=== PATIENT | male | born 1945 | race Caucasian/White ===

== ENCOUNTER 2017-01-20 05:59 | Day surgery (SDC) | payer MEDICARE, OTHER ==
[2017-01-20] MEDS ORDERED: DIPRIVAN 200 MG/20 ML IV ONE (06:00)
[2017-01-20] MEDS ORDERED: Lactated Ringers 1,000 ML IV SCH (06:00)
[2017-01-20] MEDS ORDERED: Versed 2 MG/2 ML Injection IV ONE (06:00)
[2017-01-20 08:02] VITALS: O2SAT 99
[2017-01-20 08:29] VITALS: BP 119/76; PULSE 63
--- NOTE | 2017-01-20 09:18 | XRAY ---
Indication: Weight loss. Comparison: None PA/lateral chest hyperinflated and clear. Heart and mediastinal structures within normal limits. Bony thorax intact with mild/moderate degenerative changes. Impression: Nonacute hyperinflated chest.
--- NOTE | 2017-01-20 10:16 | OP ---
SURGERY DATE/TIME: 01/20/2017 0658 PREOPERATIVE DIAGNOSIS: 40 pound weight loss unexplained. POSTOPERATIVE DIAGNOSES: 1) Mild gastritis. 2) Mild pyloric stricture. PROCEDURE: Esophagogastroduodenoscopy. SURGEON: Dr. Heart. ANESTHESIA: Medications were given by the anesthesia department. BRIEF HISTORY: The patient is a 71 year old white male patient presents now with complaints of weight loss. He previously had chest x-ray and colonoscopy performed which have been normal. The patient was felt the need to have endoscopic evaluation. He was appraised of the risks of the procedure including the risk of perforation, phlebitis, untoward reaction to medication, bleeding and missed lesions. The patient verbalized his understanding and desired to have the procedure performed. DESCRIPTION OF PROCEDURE: The patient was given the medications by the anesthesia department. He had continuous pulse oximetry, ECG monitoring, intermittent blood pressure monitoring and tidal CO2 monitoring during the examination. He was placed in the left lateral decubitus position. A bite block was placed. The flexible Olympus gastroscope was used to intubate the oropharynx. A view of the larynx was obtained and was normal. The scope was easily introduced in the esophagus which appeared to be normal throughout its length. The stomach was entered where normal gastric rugal folds were seen and these distended nicely with insufflation of air. The scope was passed along the greater curvature of the stomach to the antrum. The pylorus was encountered and was found to be somewhat narrow. We were able to intubate the duodenum but there was a distant popping sensation as we passed from the stomach to the duodenum. The rest of the duodenum appeared to be essentially normal. The scope was withdrawn towards the stomach. Again, retroflex view was obtained of the lesser curvature, fundus and cardia regions of the stomach and re-inspection of the pyloric area revealed a mild bleeding but we were more easily able to pass to the duodenum on the second pass. The scope was removed from the patient who tolerated the procedure well and was sent back to the hospital [facility] in good condition.
== END 2017-01-20 08:40 | disposition home or self-care (01) ==
LOC: SDC 05:59
PROVIDERS: ATTEND Family Medicine
PROC: 0DJ08ZZ Inspection of Upper Intestinal Tract, Via Natural or Artificial Opening Endoscopic (ICD-10-PCS; principal; 2017-01-20)
DX: K29.70 Gastritis, unspecified, without bleeding (principal); K31.1 Adult hypertrophic pyloric stenosis
CPT/HCPCS: 00740; 71020; 99100; J2250; J2704

== ENCOUNTER 2017-12-07 08:56 | Day surgery (SDC) | payer MEDICARE, OTHER ==
--- NOTE | 2017-12-04 11:29 | HP ---
DATE OF SURGERY: 12/07/2017 ADMISSION DIAGNOSIS: Pyloric obstruction. ANTICIPATED PROCEDURE: EGD with pyloric dilatation. HISTORY OF PRESENT ILLNESS: The patient has a pyloric obstruction. He is symptomatic. He presents for dilatation. PAST MEDICAL HISTORY: ALLERGIES: NKDA. MEDICATIONS: Pantoprazole. PAST SURGICAL HISTORY: Multiple. SOCIAL HISTORY: Negative. FAMILY HISTORY: Negative. REVIEW OF SYSTEMS: Negative. PHYSICAL EXAMINATION: VITAL SIGNS: Normal. CHEST: Clear. COR: Regular. IMPRESSION: Pyloric obstruction. PLAN: EGD with pyloric dilatation.
[~2017-12-07 08:56] MED LIST: Lactated Ringers 1,000 ML IV ONE; Lactated Ringers 1,000 ML IV SCH
[2017-12-07] MEDS ORDERED: Ketamine HCl 50 MG/ML IV ONE (08:57)
[2017-12-07] MEDS ORDERED: DIPRIVAN 200 MG/20 ML IV ONE (08:57)
--- NOTE | 2017-12-07 13:49 | OP ---
SURGERY DATE/TIME: 12/07/2017 1130 PREOPERATIVE DIAGNOSIS: Pyloric-gastric outlet obstruction. POSTOPERATIVE DIAGNOSIS: Pyloric-gastric outlet obstruction, resolved. PROCEDURE: EGD with balloon dilatation stage 2 at size 38. SURGEON: Tobin Emery M.D. ANESTHESIA: MAC. COMPLICATIONS: None. CONDITION: Stable. INDICATION: A patient requiring evaluation. DESCRIPTION OF PROCEDURE: Taken to endoscopy. MAC sedation provided. The scope was introduced. The esophagus normal down to gastroesophageal junction. Gastroesophageal junction satisfactory. The fundus, body and antrum satisfactory. The pylorus was tight about size 24. Balloon placed. It is insufflated for 2 minutes at second stage at 38. The scope easily passed. Duodenal bulb satisfactory. Second portion satisfactory. There had been 2 ounces of fluid that had been suctioned. The pylorus was excellent at this time. Scope withdrawn. The patient tolerated the procedure satisfactorily. Findings discussed with the family in the waiting room.
[2017-12-07 14:56] VITALS: PULSE 60
[2017-12-07 15:01] VITALS: BP 123/69; O2SAT 98
== END 2017-12-07 12:50 | disposition home or self-care (01) ==
LOC: SDC 08:56
PROVIDERS: ATTEND Surgery
DX: K31.1 Adult hypertrophic pyloric stenosis (principal); R13.10 Dysphagia, unspecified
CPT/HCPCS: 99100; C1726; J2704

== ENCOUNTER 2018-09-27 08:52 | Day surgery (SDC) | payer MEDICARE, OTHER ==
--- NOTE | 2018-09-25 14:21 | HP ---
DATE OF SURGERY: 09/27/2018 ANTICIPATED PROCEDURE: Cholecystectomy. HISTORY OF PRESENT ILLNESS: Patient with upper abdominal pain. Ultrasound positive. Seen and examined. Procedure discussed in detail and wished to proceed. PAST MEDICAL HISTORY: ALLERGIES: NONE. MEDICATIONS: Benazepril, pantoprazole. PAST SURGICAL HISTORY: Neck surgery. Shoulder surgery. Back surgery. SOCIAL HISTORY: Negative. FAMILY HISTORY: Negative. REVIEW OF SYSTEMS: Reflux. Hypertension. PHYSICAL EXAMINATION: VITAL SIGNS: Normal. CHEST: Clear. COR: Regular. ABDOMEN: Satisfactory. IMPRESSION: Symptomatic cholelithiasis. PLAN: Laparoscopic cholecystectomy.
[~2018-09-27 08:52] MED LIST changes: -Lactated Ringers 1,000 ML IV SCH; +Sensorcaine 0.25% 10 ML ONE
[2018-09-27] MEDS ORDERED: Zofran 4 MG/2 ML VIAL IV ONE (08:53)
[2018-09-27] MEDS ORDERED: BRIDION 200MG/2ML IV ONE (08:53)
[2018-09-27] MEDS ORDERED: SUBLIMAZE 100 MCG/2 ML IV ONE ×2 (08:53)
[2018-09-27] MEDS ORDERED: Decadron 4 MG PO ONE (08:53)
[2018-09-27] MEDS ORDERED: Quelicin Fliptop 200 MG/10 ML IJ ONE (08:53)
[2018-09-27] MEDS ORDERED: BREVIBLOC 100 MG/10 ML IV ONE (08:53)
[2018-09-27] MEDS ORDERED: DIPRIVAN 200 MG/20 ML IV ONE (08:53)
[2018-09-27] MEDS ORDERED: Zemuron 100 MG/10 ML IJ ONE (08:53)
[2018-09-27] MEDS ORDERED: MEFOXIN 2 GM PREMIX** 2 GM/50 ML ML IV ONE (09:19)
[2018-09-27] MEDS ORDERED: Lactated Ringers 1,000 ML IV SCH (09:30)
[2018-09-27] MEDS ORDERED: MEFOXIN 2 GM PREMIX** 2 GM/50 ML ML IV SCH (10:00)
[2018-09-27] MEDS ORDERED: DILAUDID 2 MG INJECTION ONE (13:41)
[2018-09-27] MEDS ORDERED: APRESOLINE 20 MG/ML INJ ONE (13:41)
--- NOTE | 2018-09-27 13:56 | OP ---
SURGERY DATE/TIME: 09/27/2018 1240 PREOPERATIVE DIAGNOSIS: Symptomatic cholelithiasis and gallbladder dyskinesia. POSTOPERATIVE DIAGNOSIS: Symptomatic cholelithiasis and gallbladder dyskinesia. PROCEDURE: Laparoscopic cholecystectomy. SURGEON: Dr. Emery. ANESTHESIA: General - Naga Canales CRNA. ESTIMATED BLOOD LOSS: 50. DRAINS: None. COMPLICATIONS: None. CONDITION: Stable. INDICATIONS: A patient with symptomatic cholelithiasis. DESCRIPTION OF PROCEDURE AND FINDINGS: Taken to surgery. General anesthetic, routine prep and drape. Opening pressure -2, insufflating pressure 14. Four - 5's initially. Very thick walled. Marked amount of omentum stuck against the gallbladder which is taken down with hook cautery. Infundibulum dissected. Impacted stone present. Cystic duct defined. Cystic artery defined. Both structures triply clipped and transected. Clips noted across and well approximated. Gallbladder rolled out of gallbladder fossa. A very inflamed, chronically inflamed gallbladder was present. It was necessary to suction the gallbladder. It was necessary to picker packer a few stones. Gallbladder placed in a condom bag and removed. The field was dry and clean. Gallbladder bed was slightly raw in nature. There was no oozing however. No drains were placed. Hole closure device used on the epigastric port that had been changed to a 10 port for gallbladder bag extraction. Skin closed with staplers. Sterile dressing applied. The patient tolerated the procedure satisfactorily.
[2018-09-27 15:20] VITALS: BP 151/77; PULSE 81; O2SAT 93
== END 2018-09-27 15:35 | disposition home or self-care (01) ==
LOC: SDC 08:52
PROVIDERS: ATTEND Surgery
DX: K80.20 Calculus of gallbladder without cholecystitis without obstruction (principal); K82.8 Other specified diseases of gallbladder; I10 Essential (primary) hypertension; K21.9 Gastro-esophageal reflux disease without esophagitis
CPT/HCPCS: 99100; J0330; J0360; J0694; J1170; J2405; J2704; J3010; A9270-GY

== ENCOUNTER 2020-08-02 03:50 | Inpatient (IN) | payer MEDICARE, OTHER ==
--- NOTE | 2020-08-02 04:20 | ERPHSYRPT ---
- History of Present Illness Time Seen by Provider: 08/02/20 04:15 Source: patient, EMS Exam Limitations: no limitations Physician History: pt noted weakness at 1030-11pm and later fell out of bed at 2 am ; no blood thinners. no prior cardiac or cva events. sppech is normal ; had initially slight confusion with questions but cleared cognition. has right LE weakness only stroke/neuro consult has been placed. Time of Onset/Last Time Seen Normal: 1030-1100pm Timing/Duration: today Severity: severe Character of Deficits: new weakness, altered sensation, RLE Deficits: cannot stand, cannot walk, falling, unable to stand Baseline/Normal Cognition: alert oriented x 3 Current Cognition: alert oriented x 3 (had slight confusion earlier and improved to normal cognition) Baseline Gait: walks w/o assistance Associated Symptoms: muscle spasms Allergies/Adverse Reactions: No Known Drug Allergies Allergy (Verified 08/02/20 03:51) Home Medications: Pantoprazole Sodium [Protonix] 40 mg PO DAILY 01/20/17 [History] Buprenorphine HCl/Naloxone HCl [Suboxone 2 mg-0.5 mg Sl Film] 1 each SL DAILY 09/27/18 [History] - Review of Systems Constitutional: No Fever, No Chills Eyes: No Symptoms Ears, Nose, & Throat: No Symptoms Respiratory: No Cough, No Dyspnea Cardiac: Chest Pain, No Edema, No Syncope Abdominal/Gastrointestinal: No Abdominal Pain, No Nausea, No Vomiting, No Diarrhea Genitourinary Symptoms: No Dysuria Musculoskeletal: No Back Pain, No Neck Pain Skin: No Rash Neurological: No Dizziness, No Focal Weakness, No Sensory Changes Psychological: No Symptoms Endocrine: No Symptoms All Other Systems: Reviewed and Negative - Past Medical History Pertinent Past Medical History: Yes Neurological History: No Pertinent History ENT History: Cataracts Cardiac History: Hypertension Respiratory History: No Pertinent History Endocrine Medical History: No Pertinent History Musculoskeletal History: Arthritis, Fractures GI Medical History: GERD History: No Pertinent History Psycho-Social History: No Pertinent History Male Reproductive Disorders: No Pertinent History - Past Surgical History Past Surgical History: Yes Neuro Surgical History: No Pertinent History Cardiac: No Pertinent History Respiratory: No Pertinent History Gastrointestinal: No Pertinent History Genitourinary: No Pertinent History Musculoskeletal: Orthopedic Surgery Male Surgical History: No Pertinent History Other Surgical History: kem cataract removal with lens implant, left shoulder rotator cuff twice ,back L4 and L5 "nerves clipped". cervical fusion - Social History Smoking Status: Former smoker Exposure to second hand smoke: No Drug Use: none - Nursing Vital Signs Nursing Vital Signs: Initial Vital Signs Pulse Rate 67 08/02/20 03:51 Respiratory Rate 20 08/02/20 03:51 Blood Pressure 155/72 08/02/20 03:51 O2 Sat by Pulse Oximetry 97 08/02/20 03:51 Pain Scale Pain Intensity 0 - [place] Coma Scale Best Eye Response ([place]): (4) open spontaneously Best Verbal Response ([place]): (5) oriented Best Motor Response ([place]): (6) obeys commands [place] Total: 15 - Physical Exam General Appearance: no apparent distress, alert Eye Exam: bilateral eye: PERRL, EOMI Ears, Nose, Throat Exam: normal ENT inspection, moist mucous membranes Neck Exam: normal inspection, non-tender, supple Respiratory: normal breath sounds, lungs clear, airway intact, No respiratory distress Cardiovascular: regular rate/rhythm, No edema Gastrointestinal: soft, No tenderness, No distention Rectal Exam: deferred Back Exam: normal inspection Extremity Exam: normal inspection, No pedal edema Peripheral Pulses: carotid (R): 2+, carotid (L): 2+, femoral (R): 2+, femoral (L): 2+, dorsalis-pedis (R): 2+, dorsalis-pedis (L): 2+ Mental Status: alert, oriented x 3, 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 Exam: normal speech, PERRL, tongue midline, No facial droop Coordination/Gait: normal finger to nose, normal cerebellar function, No normal gait Motor/Sensory: no pronator drift, sensory deficit, weak motor strength RLE DTR: bicep (R): 2+, bicep (L): 2+, tricep (R): 2+, tricep (L): 2+, knee (R): 3+, knee (L): 2+, ankle (R): 3+, ankle (L): 2+ Skin Exam: normal color, warm, dry, No rash SpO2 Interpretation: normal O2 Delivery: Room Air - Course Nursing assessment & vital signs reviewed: Yes EKG Interpreted by Me: Sinus Rhythm, NORMAL AXIS, NORMAL INTERVALS, NORMAL QRS, Non-specific ST Changes - CT Exams Head CT Interpretation: Tele-radiologist Report, No/Intracranial Hemorrhag Ordered Tests: Active Orders 24 hr Category Date Time Status EKG-ER Only STAT Care 08/02/20 04:10 Active IV Insertion STAT Care 08/02/20 04:10 Active NPO (ED) STAT Care 08/02/20 04:10 Active Pulse Oximetry (ED) STAT Care 08/02/20 04:[address] ANGIOGRAPHY NECK [CT] Stat Exams 08/02/20 05:40 Taken CTA HEAD W AND/OR WO CONTRAST [CT] Stat Exams 08/02/20 05:54 Taken HEAD WITHOUT CONTRAST [CT] Stat Exams 08/02/20 04:10 Taken CBC W DIFF Stat Lab 08/02/20 04:30 Completed CMP Stat Lab 08/02/20 04:30 Completed Lactic Acid Stat Lab 08/02/20 04:29 Completed TROPONIN Q3H Lab 08/02/20 04:30 Completed TROPONIN Q3H Lab 08/02/20 07:15 Ordered TROPONIN Q3H Lab 08/02/20 10:15 Ordered TROPONIN Q3H Lab 08/02/20 13:15 Ordered TROPONIN Q3H Lab 08/02/20 16:15 Ordered UA W/RFX UR CULTURE Stat Lab 08/02/20 04:36 Completed Lab/Rad Data: Laboratory Result Diagrams 08/02/20 04:30 08/02/20 04:30 Laboratory Results 08/02/20 08/02/20 08/02/20 Range/Units 04:36 04:30 04:30 WBC (4.0-10.5) K/mm3 RBC (4.1-5.6) M/mm3 Hgb (12.5-18.0) gm/dl Hct (42-50) % MCV (78-100) fl MCH (26-32) pg MCHC (32-36) g/dl RDW (11.5-14.0) % Plt Count (150-450) K/mm3 MPV (7.5-11.0) fl Gran % (36.0-66.0) % Eos # (Auto) (0-0.5) Absolute Lymphs (auto) (1.0-4.6) Absolute Monos (auto) (0.0-1.3) Lymphocytes % (24.0-44.0) % Monocytes % (0.0-12.0) % Eosinophils % (0.00-5.0) % Basophils % (0.0-0.4) % Absolute Granulocytes (1.4-6.9) Basophils # (0-0.4) Sodium 133 L (137-145) mmol/L Potassium 4.5 (3.5-5.1) mmol/L Chloride 101 (98-107) mmol/L Carbon Dioxide 28 (22-30) mmol/L Anion Gap 8.2 (5-15) MEQ/L BUN 15 (9-20) mg/dL Creatinine 0.85 (0.66-1.25) mg/dL Estimated GFR > 60.0 ML/MIN Glucose 106 (74-106) mg/dL Lactic Acid (0.4-2.0) Calcium 9.1 (8.4-10.2) mg/dL Total Bilirubin 0.30 (0.2-1.3) mg/dL AST 20 (17-59) U/L ALT 5 (0-50) U/L Alkaline Phosphatase 92 (38-126) U/L Troponin I < 0.012 (0.000-0.034) ng/mL Serum Total Protein 6.7 (6.3-8.2) g/dL Albumin 3.7 (3.5-5.0) g/dL Urine Color YELLOW (YELLOW) Urine Appearance CLEAR (CLEAR) Urine pH 5.0 (5-6) Ur Specific [place] 1.018 (1.005-1.025) Urine Protein NEGATIVE (Negative) Urine Ketones TRACE (NEGATIVE) Urine Blood NEGATIVE (0-5) [place]/ul Urine Nitrite NEGATIVE (NEGATIVE) Urine Bilirubin NEGATIVE (NEGATIVE) Urine Urobilinogen NEGATIVE (0-1) mg/dL Ur Leukocyte Esterase NEGATIVE (NEGATIVE) Urine WBC (Auto) NONE (0-5) /HPF Urine RBC (Auto) NONE (0-2) /HPF U Hyaline Cast (Auto) 0-2 (0-2) /LPF U Epithel Cells (Auto) NONE (FEW) /HPF Urine Bacteria (Auto) NONE (NEGATIVE) /HPF Urine Mucus (Auto) SLIGHT (NEGATIVE) /HPF Urine Culture Reflexed NO (NO) Urine Glucose NEGATIVE (NEGATIVE) mg/dL 08/02/20 08/02/20 Range/Units 04:30 04:29 WBC 8.0 (4.0-10.5) K/mm3 RBC 4.63 (4.1-5.6) M/mm3 Hgb 13.0 (12.5-18.0) gm/dl Hct 41.9 L (42-50) % MCV 90.5 (78-100) fl MCH 28.1 (26-32) pg MCHC 31.0 L (32-36) g/dl RDW 14.2 H (11.5-14.0) % Plt Count 226 (150-450) K/mm3 MPV 9.6 (7.5-11.0) fl Gran % 63.1 (36.0-66.0) % Eos # (Auto) 0.59 H (0-0.5) Absolute Lymphs (auto) 1.59 (1.0-4.6) Absolute Monos (auto) 0.73 (0.0-1.3) Lymphocytes % 19.9 L (24.0-44.0) % Monocytes % 9.1 (0.0-12.0) % Eosinophils % 7.4 H (0.00-5.0) % Basophils % 0.5 (0.0-0.4) % Absolute Granulocytes 5.05 (1.4-6.9) Basophils # 0.04 (0-0.4) Sodium (137-145) mmol/L Potassium (3.5-5.1) mmol/L Chloride (98-107) mmol/L Carbon Dioxide (22-30) mmol/L Anion Gap (5-15) MEQ/L BUN (9-20) mg/dL Creatinine (0.66-1.25) mg/dL Estimated GFR ML/MIN Glucose (74-106) mg/dL Lactic Acid 0.8 (0.4-2.0) Calcium (8.4-10.2) mg/dL Total Bilirubin (0.2-1.3) mg/dL AST (17-59) U/L ALT (0-50) U/L Alkaline Phosphatase (38-126) U/L Troponin I (0.000-0.034) ng/mL Serum Total Protein (6.3-8.2) g/dL Albumin (3.5-5.0) g/dL Urine Color (YELLOW) Urine Appearance (CLEAR) Urine pH (5-6) Ur Specific [place] (1.005-1.025) Urine Protein (Negative) Urine Ketones (NEGATIVE) Urine Blood (0-5) [place]/ul Urine Nitrite (NEGATIVE) Urine Bilirubin (NEGATIVE) Urine Urobilinogen (0-1) mg/dL Ur Leukocyte Esterase (NEGATIVE) Urine WBC (Auto) (0-5) /HPF Urine RBC (Auto) (0-2) /HPF U Hyaline Cast (Auto) (0-2) /LPF U Epithel Cells (Auto) (FEW) /HPF Urine Bacteria (Auto) (NEGATIVE) /HPF Urine Mucus (Auto) (NEGATIVE) /HPF Urine Culture Reflexed (NO) Urine Glucose (NEGATIVE) mg/dL - Progress Progress: improved, re-examined Progress Note: 08/02/20 05:30 had neuro consult and discussed with Neurologist artist consultant who advises to have CTA and rad here confirms we can do this here. Pt declined TPA after discussion of risk benefit and is improving now able to move right leg well - but still needs CTA eval to identify pathology for other interventions if found and indicated. ASA already given as neuro requested. 08/02/20 05:39 08/02/20 06:43 Discussed with pt, family and Dr. bradford and all agree to place in on obs pending CTA result which could require transfer depending upon pathology. discussed with Dr. Orellana at change of shift and he will followup CTA result and inform Dr. Bradford if more than distal occlusion as expected. 08/02/20 06:46 08/02/20 06:47 [address] with DrChristine: Paolo Will see patient in: hospital (observation) Counseled pt/family regarding: lab results, diagnosis, need for follow-up, rad results - Departure Departure Disposition: Observation Clinical Impression: CVA (cerebral vascular accident) Condition: Critical Critical Care Time: Yes Critical Care Time(excluding separately billable procedures): Critical 30-74 mins (cva symptoms requiring critical care with neuro eval-40 minutes) Referrals: KACI DIAZ [Primary Care Provider] -
[2020-08-02 04:43] LABS: Absolute Neutrophil Ct (ANC) 5.05 (1.4-6.9); BASOPHIL % 0.5 % (0.0-0.4); Basophil (Absolute #) 0.04 (0-0.4); Eosinophil % 7.4 % (0.00-5.0); Eosinophil (Absolute #) 0.59 (0-0.5); Hematocrit 41.9 % (42-50); Lymphocyte (Absolute #) 1.59 (1.0-4.6); Lymphocytes % 19.9 % (24.0-44.0); Mean Cell Volume 90.5 fl (78-100); Mean Corpuscular Hemoglobin 28.1 pg (26-32); Mean Platelet Volume 9.6 fl (7.5-11.0); Monocyte (Absolute #) 0.73 (0.0-1.3); Monocytes % 9.1 % (0.0-12.0); Neutrophil % 63.1 % (36.0-66.0); Platelet Count 226 K/mm3 (150-450); Red Blood Count 4.63 M/mm3 (4.1-5.6); Red Cell Distribution Width 14.2 % (11.5-14.0)
[2020-08-02 04:49] LABS: Appearance CLEAR (CLEAR); Bilirubin NEGATIVE (NEGATIVE); Blood NEGATIVE Ery/ul (0-5); Glucose NEGATIVE (NEGATIVE); Hyaline Casts 0-2 /LPF (0-2); Ketones TRACE (NEGATIVE); Leukocyte Esterase NEGATIVE (NEGATIVE); Mucus SLIGHT /HPF (NEGATIVE); Nitrite NEGATIVE (NEGATIVE); Protein,Urine Dip NEGATIVE (Negative); Specific Gravity 1.018 (1.005-1.025); Urobilinogen NEGATIVE mg/dL (0-1)
[2020-08-02 04:55] LABS: ALBUMIN 3.7 g/dL (3.5-5.0); ALKALINE PHOSPHATASE 92 U/L (38-126); ANION GAP 8.2 MEQ/L (5-15); BLOOD UREA NITROGEN 15 mg/dL (9-20); CHLORIDE 101 mmol/L (98-107); Calcium 9.1 mg/dL (8.4-10.2); Carbon Dioxide 28 mmol/L (22-30); Creatinine 1 0.85 mg/dL (0.66-1.25); EST GLOMERULAR FILTRATION RATE > 60.0 ML/MIN; Glucose 106 mg/dL (74-106); Potassium 4.5 mmol/L (3.5-5.1); SGOT/AST 20 U/L (17-59); SODIUM 133 mmol/L (137-145); Total Protein 6.7 g/dL (6.3-8.2)
[2020-08-02 04:56] LABS: SGPT/ALT 5 U/L (0-50)
[2020-08-02 07:44] LABS: INFLUENZA A NEGATIVE (NEGATIVE); INFLUENZA B NEGATIVE (NEGATIVE); RESPIRATORY SYNCTIAL VIRUS NEGATIVE (Negative)
--- NOTE | 2020-08-02 08:05 | XRAY ---
Indication: Right leg weakness. Multiple contiguous axial images obtained through the head without contrast. Comparison: None Age-appropriate global atrophy and minimal periventricular degenerative micro-ischemia bilaterally. No acute intracranial hemorrhage, abnormal extra-axial fluid collection, or mass effect. Fourth ventricle is midline without hydrocephalus. Bony calvarium intact. 1 cm left maxillary sinus polyp/retention cyst. Mastoid air cells are clear. Impression: Nonacute senile brain. Incidental left maxillary sinus polyp/retention cyst. Comment: Preliminary interpretation was made by [facility]. No critical discrepancy.
--- NOTE | 2020-08-02 08:15 | XRAY ---
Indication: Right leg weakness. Conventional contrast enhanced CTA neck performed using 80 cc of Isovue 370 contrast. Two-dimensional sagittal and coronal reformatted images obtained. Additional 3-dimensional reformatted images obtained using a separate workstation. Comparison: None Visualized aortic arch is mildly arteriosclerotic without aneurysm/dissection. Normal branching right brachiocephalic, left common carotid, and left subclavian arteries with minimal calcifications at origins. No critical stenosis or obstruction. Right carotid circulation demonstrates widely patent common carotid, carotid bulb, and external carotid arteries. There is occlusion of the entire visualized internal carotid artery. Left carotid circulation demonstrates widely patent mid to proximal common carotid artery. Tiny punctate calcification distal common carotid artery. At the level of the bulb, there is minimal eccentric calcified plaquing without critical stenosis/obstruction. Moderate heterogeneous plaquing seen at the origin internal carotid artery producing focal greater than 70% stenosis. External carotid artery is normal in CTA appearance. Vertebral arteries demonstrates occluded proximal left vertebral artery with reconstitution approximately C6 level with remaining left vertebral artery markedly attenuated in size. Right vertebral artery is normal in course and caliber without focal stricture, ejection, or AV malformation. Visualized soft tissues are negative for pathologic lymphadenopathy. Thyroid gland enhances homogeneously. Supra and infraglottic airway is widely patent. Underlying cervical spine intact with flowing osteophytes throughout the thoracolumbar spine. Lung apices are clear. CTA head and CT head reported separately. Impression: 1. Occlusion of the right internal carotid artery. 2. Scattered left carotid arteriosclerotic disease greatest internal carotid artery with focal greater than 70% stenosis. 3. Occlusion of the proximal left vertebral artery with distal reconstitution. Comment: Preliminary interpretation was made by [facility]. No critical discrepancy.
--- NOTE | 2020-08-02 08:21 | XRAY ---
Indication: Right leg weakness. Conventional contrast enhanced CTA head performed using 80 cc of Isovue 370 contrast. Two-dimensional sagittal and coronal reformatted images obtained. Additional 3-dimensional reformatted images obtained using a separate workstation. Comparison: None CTA neck and CT head reported separately. There is occlusion of the entire right internal carotid artery with reconstitution at the level of the ophthalmic branch. Left internal carotid artery demonstrates minimal scattered calcifications without critical stenosis/obstruction or AV malformation. Normal carotid terminus with normal branching A1 and M1 segments bilaterally. Right A1 segment is attenuated. More distal anterior cerebral, middle cerebral, anterior communicating, and posterior communicating arteries are normal in CTA appearance. Posterior circulation demonstrates basilar artery normal in course and caliber with normal branching posterior cerebral and superior cerebellar arteries bilaterally. Venous drainage/sinuses are unremarkable. Remaining whole brain images are negative for abnormal enhancing intra-or extra-axial mass. Impression: 1. Occlusion of the right internal carotid artery with reconstitution at the level of the ophthalmic branch. Incidental attenuated right A1 segment of uncertain clinical significance. 2. Minimal distal left internal carotid artery arteriosclerotic calcifications without critical stenosis/obstruction. 3. Remaining CTA head is negative. Comment: Preliminary interpretation was made by [facility]. No critical discrepancy.
[2020-08-02] MEDS ORDERED: HUMALOG SQ PRN (09:10)
[2020-08-02] MEDS ORDERED: Zofran 4 MG/2 ML VIAL IV PRN (09:10)
[2020-08-02] MEDS ORDERED: Ecotrin 325 MG PO SCH (10:00)
[2020-08-02] MEDS: Pepcid 20 MG VIAL IV SCH ×2 (10:30→21:31)
[2020-08-02] MEDS: PATIENT OWN MEDICATION SL SCH ×2 (10:30→19:55)
[2020-08-02] MEDS: TYLENOL 325 MG PO PRN (10:50)
[2020-08-02] MEDS: Sodium Chloride 0.9% 1000 ML 1,000 ML IV SCH ×2 (11:33→21:41)
--- NOTE | 2020-08-02 13:30 | PCM.HP ---
History of Present Illness - Chief Complaint Chief Complaint: RT CVA History of Present Illness: is a 75 year old male patient of Dr Heart, presented to the ER last night with sudden onset of right leg weakness, he was seen by teleneuro and did not recommend TPA as ER doctor reports symptoms were improving after arrival, he was confused. He is alert and able to give history, still has significant weakness in the right leg, denies weakness in right upper extremity, no blurry vision, no headache, no slurred speech or difficulty swallowing. - Review of Systems Constitutional: No Fever, No Chills Respiratory: No Cough, No Short Of Breath Cardiac: No Chest Pain, No Edema, No Syncope Abdominal/Gastrointestinal: No Abdominal Pain, No Nausea, No Vomiting, No Diarrh ea Skin: No Rash Neurological: Focal Weakness All Other Systems: Reviewed and Negative Medications & Allergies Home Medications: Home Medication List Pantoprazole Sodium [Protonix] 40 mg PO DAILY 01/20/17 [History Confirmed 08/02/20] Buprenorphine HCl/Naloxone HCl [Buprenorp-Nalox 8-2 mg Sl Film] 1 each SL DAILY 08/02/20 [History Confirmed 08/02/20] Timolol Maleate/Dorzolam HCl [Cosopt Ophthalmic 10 ml] 1 drop OP BID 08/02/20 [History Confirmed 08/02/20] Allergies/Adverse Reactions: Allergies Allergy/AdvReac Type Severity Reaction Status Date / Time No Known Drug Allergies Allergy Verified 08/02/20 03:51 - Past Medical History Past Medical History: Yes Neurological History: No Pertinent History ENT History: Cataracts, Macular Degeneration Cardiac History: Hypertension Respiratory History: No Pertinent History Endocrine Medical History: No Pertinent History Musculoskelatal History: Arthritis GI Medical History: GERD History: No Pertinent History Pyscho-Social History: No Pertinent History Male Reproductive Disorders: No Pertinent History - Past Surgical History Past Surgical History: Yes Neuro Surgical History: No Pertinent History Cardiac History: No Pertinent History Respiratory Surgery: No Pertinent History GI Surgical History: Cholecystectomy Genitourinary Surgical Hx: No Pertinent History Musculskeletal Surgical Hx: Orthopedic Surgery Male Surgical History: No Pertinent History Other Surgical History: kem cataract removal with lens implant, left shoulder rotator cuff twice ,back L4 and L5 "nerves clipped". 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, normal mood/affect, nml cerebellar function, motor deficits (right lower leg strength 2/5, unable to lift from bed against gravity, LLE 5/5, sensation intact), No sensory deficit, No disoriented Neck Exam: normal inspection, non-tender, supple Respiratory Exam: normal breath sounds, lungs clear, No respiratory distress Cardiovascular Exam: regular rate/rhythm, normal heart sounds, normal peripheral pulses Gastrointestinal/Abdomen Exam: soft, normal bowel sounds, No tenderness, No mass Extremity Exam: normal inspection, normal range of motion, pelvis stable Skin Exam: normal color, warm, dry, No rash Results - Labs Lab/Micro Results: Lab Results-Last 24 Hours 08/02/20 08/02/20 08/02/20 Range/Units 04:29 04:30 04:30 WBC 8.0 (4.0-10.5) K/mm3 RBC 4.63 (4.1-5.6) M/mm3 Hgb 13.0 (12.5-18.0) gm/dl Hct 41.9 L (42-50) % MCV 90.5 (78-100) fl MCH 28.1 (26-32) pg MCHC 31.0 L (32-36) g/dl RDW 14.2 H (11.5-14.0) % Plt Count 226 (150-450) K/mm3 MPV 9.6 (7.5-11.0) fl Gran % 63.1 (36.0-66.0) % Eos # (Auto) 0.59 H (0-0.5) Absolute Lymphs (auto) 1.59 (1.0-4.6) Absolute Monos (auto) 0.73 (0.0-1.3) Lymphocytes % 19.9 L (24.0-44.0) % Monocytes % 9.1 (0.0-12.0) % Eosinophils % 7.4 H (0.00-5.0) % Basophils % 0.5 (0.0-0.4) % Absolute Granulocytes 5.05 (1.4-6.9) Basophils # 0.04 (0-0.4) Sodium (137-145) mmol/L Potassium (3.5-5.1) mmol/L Chloride (98-107) mmol/L Carbon Dioxide (22-30) mmol/L Anion Gap (5-15) MEQ/L BUN (9-20) mg/dL Creatinine (0.66-1.25) mg/dL Estimated GFR ML/MIN Glucose (74-106) mg/dL Lactic Acid 0.8 (0.4-2.0) Calcium (8.4-10.2) mg/dL Total Bilirubin (0.2-1.3) mg/dL AST (17-59) U/L ALT (0-50) U/L Alkaline Phosphatase (38-126) U/L Troponin I < 0.012 (0.000-0.034) ng/mL Serum Total Protein (6.3-8.2) g/dL Albumin (3.5-5.0) g/dL Urine Color (YELLOW) Urine Appearance (CLEAR) Urine pH (5-6) Ur Specific [place] (1.005-1.025) Urine Protein (Negative) Urine Ketones (NEGATIVE) Urine Blood (0-5) Bryant/ul Urine Nitrite (NEGATIVE) Urine Bilirubin (NEGATIVE) Urine Urobilinogen (0-1) mg/dL Ur Leukocyte Esterase (NEGATIVE) Urine WBC (Auto) (0-5) /HPF Urine RBC (Auto) (0-2) /HPF U Hyaline Cast (Auto) (0-2) /LPF U Epithel Cells (Auto) (FEW) /HPF Urine Bacteria (Auto) (NEGATIVE) /HPF Urine Mucus (Auto) (NEGATIVE) /HPF Urine Culture Reflexed (NO) Urine Glucose (NEGATIVE) mg/dL Influenza Type A Ag (NEGATIVE) Influenza Type B Ag (NEGATIVE) RSV (PCR) (Negative) SARS-CoV-2 (PCR) (NEGATIVE) 08/02/20 08/02/20 08/02/20 Range/Units 04:30 04:36 07:00 WBC (4.0-10.5) K/mm3 RBC (4.1-5.6) M/mm3 Hgb (12.5-18.0) gm/dl Hct (42-50) % MCV (78-100) fl MCH (26-32) pg MCHC (32-36) g/dl RDW (11.5-14.0) % Plt Count (150-450) K/mm3 MPV (7.5-11.0) fl Gran % (36.0-66.0) % Eos # (Auto) (0-0.5) Absolute Lymphs (auto) (1.0-4.6) Absolute Monos (auto) (0.0-1.3) Lymphocytes % (24.0-44.0) % Monocytes % (0.0-12.0) % Eosinophils % (0.00-5.0) % Basophils % (0.0-0.4) % Absolute Granulocytes (1.4-6.9) Basophils # (0-0.4) Sodium 133 L (137-145) mmol/L Potassium 4.5 (3.5-5.1) mmol/L Chloride 101 (98-107) mmol/L Carbon Dioxide 28 (22-30) mmol/L Anion Gap 8.2 (5-15) MEQ/L BUN 15 (9-20) mg/dL Creatinine 0.85 (0.66-1.25) mg/dL Estimated GFR > 60.0 ML/MIN Glucose 106 (74-106) mg/dL Lactic Acid (0.4-2.0) Calcium 9.1 (8.4-10.2) mg/dL Total Bilirubin 0.30 (0.2-1.3) mg/dL AST 20 (17-59) U/L ALT 5 (0-50) U/L Alkaline Phosphatase 92 (38-126) U/L Troponin I (0.000-0.034) ng/mL Serum Total Protein 6.7 (6.3-8.2) g/dL Albumin 3.7 (3.5-5.0) g/dL Urine Color YELLOW (YELLOW) Urine Appearance CLEAR (CLEAR) Urine pH 5.0 (5-6) Ur Specific [place] 1.018 (1.005-1.025) Urine Protein NEGATIVE (Negative) Urine Ketones TRACE (NEGATIVE) Urine Blood NEGATIVE (0-5) Bryant/ul Urine Nitrite NEGATIVE (NEGATIVE) Urine Bilirubin NEGATIVE (NEGATIVE) Urine Urobilinogen NEGATIVE (0-1) mg/dL Ur Leukocyte Esterase NEGATIVE (NEGATIVE) Urine WBC (Auto) NONE (0-5) /HPF Urine RBC (Auto) NONE (0-2) /HPF U Hyaline Cast (Auto) 0-2 (0-2) /LPF U Epithel Cells (Auto) NONE (FEW) /HPF Urine Bacteria (Auto) NONE (NEGATIVE) /HPF Urine Mucus (Auto) SLIGHT (NEGATIVE) /HPF Urine Culture Reflexed NO (NO) Urine Glucose NEGATIVE (NEGATIVE) mg/dL Influenza Type A Ag NEGATIVE (NEGATIVE) Influenza Type B Ag NEGATIVE (NEGATIVE) RSV (PCR) NEGATIVE (Negative) SARS-CoV-2 (PCR) NEGATIVE (NEGATIVE) 08/02/20 08/02/20 Range/Units 07:23 09:50 WBC (4.0-10.5) K/mm3 RBC (4.1-5.6) M/mm3 Hgb (12.5-18.0) gm/dl Hct (42-50) % MCV (78-100) fl MCH (26-32) pg MCHC (32-36) g/dl RDW (11.5-14.0) % Plt Count (150-450) K/mm3 MPV (7.5-11.0) fl Gran % (36.0-66.0) % Eos # (Auto) (0-0.5) Absolute Lymphs (auto) (1.0-4.6) Absolute Monos (auto) (0.0-1.3) Lymphocytes % (24.0-44.0) % Monocytes % (0.0-12.0) % Eosinophils % (0.00-5.0) % Basophils % (0.0-0.4) % Absolute Granulocytes (1.4-6.9) Basophils # (0-0.4) Sodium (137-145) mmol/L Potassium (3.5-5.1) mmol/L Chloride (98-107) mmol/L Carbon Dioxide (22-30) mmol/L Anion Gap (5-15) MEQ/L BUN (9-20) mg/dL Creatinine (0.66-1.25) mg/dL Estimated GFR ML/MIN Glucose (74-106) mg/dL Lactic Acid (0.4-2.0) Calcium (8.4-10.2) mg/dL Total Bilirubin (0.2-1.3) mg/dL AST (17-59) U/L ALT (0-50) U/L Alkaline Phosphatase (38-126) U/L Troponin I 0.046 H* 0.030 (0.000-0.034) ng/mL Serum Total Protein (6.3-8.2) g/dL Albumin (3.5-5.0) g/dL Urine Color (YELLOW) Urine Appearance (CLEAR) Urine pH (5-6) Ur Specific [place] (1.005-1.025) Urine Protein (Negative) Urine Ketones (NEGATIVE) Urine Blood (0-5) Bryant/ul Urine Nitrite (NEGATIVE) Urine Bilirubin (NEGATIVE) Urine Urobilinogen (0-1) mg/dL Ur Leukocyte Esterase (NEGATIVE) Urine WBC (Auto) (0-5) /HPF Urine RBC (Auto) (0-2) /HPF U Hyaline Cast (Auto) (0-2) /LPF U Epithel Cells (Auto) (FEW) /HPF Urine Bacteria (Auto) (NEGATIVE) /HPF Urine Mucus (Auto) (NEGATIVE) /HPF Urine Culture Reflexed (NO) Urine Glucose (NEGATIVE) mg/dL Influenza Type A Ag (NEGATIVE) Influenza Type B Ag (NEGATIVE) RSV (PCR) (Negative) SARS-CoV-2 (PCR) (NEGATIVE) - Radiology Impressions Radiology Exams & Impressions: Radiology Procedures Category Date Time Status CT ANGIOGRAPHY NECK [CT] Stat Exams 08/02/20 05:40 Completed CTA HEAD W AND/OR WO CONTRAST [CT] Stat Exams 08/02/20 05:54 Completed HEAD WITHOUT CONTRAST [CT] Stat Exams 08/02/20 04:10 Completed Assessment/Plan (1) CVA (cerebral vascular accident) Current Visit: Yes Status: Acute Assessment & Plan: recommend aspirin/plavix, will check lipids in AM. PT consult. internal carotid occluded on right does not correlate with right anatomical findings that would suggest infarct on the left hemisphere. will obtain MRI tomorrow to further evaluate Code(s): I63.9 - CEREBRAL INFARCTION, UNSPECIFIED (2) Internal carotid artery occlusion Current Visit: Yes Status: Acute Code(s): I65.29 - OCCLUSION AND STENOSIS OF UNSPECIFIED CAROTID ARTERY
[2020-08-02] MEDS: COSOPT OPHTHALMIC 10 ML OP SCH (16:35)
[2020-08-03 05:42] LABS: Absolute Neutrophil Ct (ANC) 4.37 (1.4-6.9); BASOPHIL % 0.5 % (0.0-0.4); Basophil (Absolute #) 0.04 (0-0.4); Eosinophil % 9.8 % (0.00-5.0); Eosinophil (Absolute #) 0.74 (0-0.5); Hematocrit 40.9 % (42-50); Hemoglobin 12.7 gm/dl (12.5-18.0); Lymphocyte (Absolute #) 1.69 (1.0-4.6); Lymphocytes % 22.3 % (24.0-44.0); Mean Cell Volume 89.9 fl (78-100); Mean Corpuscular Hemoglobin 27.9 pg (26-32); Mean Corpuscular Hgb Concent. 31.1 g/dl (32-36); Mean Platelet Volume 10.1 fl (7.5-11.0); Monocyte (Absolute #) 0.74 (0.0-1.3); Monocytes % 9.8 % (0.0-12.0); Neutrophil % 57.6 % (36.0-66.0); Platelet Count 193 K/mm3 (150-450); Red Blood Count 4.55 M/mm3 (4.1-5.6); Red Cell Distribution Width 14.2 % (11.5-14.0); White Blood Count 7.6 K/mm3 (4.0-10.5)
[2020-08-03 05:48] LABS: ALBUMIN 3.4 g/dL (3.5-5.0); ALKALINE PHOSPHATASE 82 U/L (38-126); BLOOD UREA NITROGEN 8 mg/dL (9-20); CHLORIDE 104 mmol/L (98-107); Calcium 8.9 mg/dL (8.4-10.2); Carbon Dioxide 27 mmol/L (22-30); Creatinine 1 0.71 mg/dL (0.66-1.25); EST GLOMERULAR FILTRATION RATE > 60.0 ML/MIN; Glucose 92 mg/dL (74-106); Potassium 4.1 mmol/L (3.5-5.1); SGOT/AST 20 U/L (17-59); SODIUM 135 mmol/L (137-145); Total Protein 6.3 g/dL (6.3-8.2)
[2020-08-03 05:54] LABS: SGPT/ALT 5 U/L (0-50)
[2020-08-03 06:06] LABS: Risk Ratio 4.4
[2020-08-03] MEDS: Sodium Chloride 0.9% 1000 ML 1,000 ML IV SCH ×2 (07:36→22:26)
[2020-08-03] MEDS ORDERED: xanAX 0.5 MG PO ONE (08:31)
--- NOTE | 2020-08-03 09:49 | XRAY ---
Indication: Right leg weakness. Abnormal CTA brain and carotid arteries. Sagittal, coronal, and axial MRI brain was performed without contrast using T1, T2, FLAIR, diffusion, and ADC sequences. Comparison: None There is age-appropriate global atrophy and moderate periventricular degenerative micro-ischemia signal bilaterally. Left cerebrum demonstrates multiple tiny foci of restricted signal especially near the vertex favoring acute micro-ischemia. No acute intracranial hemorrhage, abnormal extra-axial fluid collection, or mass effect. Fourth ventricle is midline without hydrocephalus. 7/8 cranial nerve complex bilaterally symmetric. Normal appearing craniocervical junction and sella turcica. Visualized paranasal sinuses are clear. Impression: 1. Multifocal tiny left cerebral acute micro-ischemia without acute hemorrhage or mass effect. Given multiplicity, rule out cerebral embolic infarcts due to embolic shower. 2. Atrophy and degenerative micro-ischemia within normal limits for patient's age.
[2020-08-03] MEDS: Pepcid 20 MG VIAL IV SCH ×2 (10:31→22:26)
[2020-08-03] MEDS: ECOTRIN 81 MG PO SCH (10:36)
[2020-08-03] MEDS: COSOPT OPHTHALMIC 10 ML OP SCH ×2 (10:36→22:27)
[2020-08-03] MEDS: Protonix 40MG Tablet PO SCH (10:36)
[2020-08-03] MEDS: PLAVIX 75 MG Tablet PO SCH (10:36)
[2020-08-03] MEDS: PATIENT OWN MEDICATION SL SCH ×2 (10:47→22:28)
[2020-08-04] MEDS: TYLENOL 325 MG PO PRN (09:25)
[2020-08-04] MEDS: Pepcid 20 MG VIAL IV SCH ×2 (09:28→21:46)
[2020-08-04] MEDS: PLAVIX 75 MG Tablet PO SCH (09:28)
[2020-08-04] MEDS: Protonix 40MG Tablet PO SCH (09:28)
[2020-08-04] MEDS: ECOTRIN 81 MG PO SCH (09:28)
[2020-08-04] MEDS: PATIENT OWN MEDICATION SL SCH ×2 (09:29→21:45)
[2020-08-04] MEDS: COSOPT OPHTHALMIC 10 ML OP SCH ×2 (09:33→21:44)
[2020-08-04] MEDS: ELIQUIS 2.5 MG TABLET PO SCH (21:45)
[2020-08-05] MEDS: TYLENOL 325 MG PO PRN (02:52)
--- NOTE | 2020-08-05 09:43 | ECHO ---
Transthoracic echocardiographic examination and color Doppler was done on 08/03/2020. INDICATION: Stroke. IMPRESSION: THE STUDY WAS SOMEWHAT LIMITED BECAUSE OF THE PATIENT'S HABITUS. The left ventricle is visualized and demonstrated moderate left ventricular hypertrophy with a left ventricular ejection fraction of around 50 to 60%. The mitral valve was partially seen and this appears to open adequately. No significant mitral regurgitation is seen. The aortic valve appears to open adequately. The right side chambers appears to be normal. The right ventricular systolic pressure is 40 mm of Mercury. There is some moderate pericardial effusion with no definite evidence of tamponade. The patient will need serial echo to assess progression of pericardial effusion.
[2020-08-05] MEDS: Protonix 40MG Tablet PO SCH (09:56)
[2020-08-05] MEDS: Pepcid 20 MG VIAL IV SCH ×2 (09:56→10:01)
[2020-08-05] MEDS: ELIQUIS 2.5 MG TABLET PO SCH (09:56)
[2020-08-05] MEDS: COSOPT OPHTHALMIC 10 ML OP SCH (09:56)
[2020-08-05] MEDS: PATIENT OWN MEDICATION SL SCH (09:56)
--- NOTE | 2020-08-05 10:53 | DS ---
DISCHARGE DIAGNOSES: 1) TRANSIENT ISCHEMIC ATTACK.2) ATHEROSCLEROTIC DISEASE. 3) OCCLUSION OF THE RIGHT INTERNAL CAROTID AND RIGHT VERTEBRAL ARTERY. 4) WEAKNESS. HISTORY: The patient is a 75 year-old white male patient who apparently had noted weakness and inability to move his right leg. When he presented to the emergency room he was found to be having events consistent with cerebrovascular accident. The patient had consultation performed and was actually ready to have TPA when he decided against it. By the next morning the patient was found to have right leg weakness. He was able to barely raise the right leg against gravity while the left was normal as were his upper extremities. The patient had evaluations including echocardiogram and MRI of the brain which showed no evidence of cerebrovascular accident but did however show multifocal tiny left cerebral acute micro-ischemia without hemorrhage or mass effect; rule out central embolic infarcts due to embolic shower, atrophy and degenerative micro-ischemia within normal limits for patient's age was also noted. The patient did also have head CT scan which showed nonacute senile brain with incidental left maxillary sinus polyp or retention cyst. Angiography of the neck did show the occlusion of the right internal carotid artery and scattered left carotid atherosclerotic disease greatest internal carotid artery with focal greater than 70% stenosis, occlusion of the proximal left vertebral artery with distal reconstitution. The patient had CT-A of the head showing occlusion again of the right internal carotid with reconstitution at the level of the ophthalmic branch but was otherwise essentially negative. The patient had the tele-neurology consult which recommended the MRI and did at that time also suggest that CT-A would be reasonable. HOSPITAL COURSE: The patient with monitoring did show improvement on a daily basis with his ability to move the right leg against gravity by day two he was completely back to normal. We did have physical therapy see the patient who felt that he was too unstable at this time to be discharged home due to concerns for falling. However on the morning of 07/26/2020, we discussed with the patient who felt like he did well and continue to be back to normal in regards to his lower extremity strength. We felt the patient could be discharged home at this point with home health and physical therapy in home. He reports he can have somebody stay with him while he is home alone. The patient was started on Eliquis at 5 mg b.i.d. due to problems concerning for the microembolic phenomenon and due to the occlusion of the right internal carotid artery. The patient will have follow up with his de alcholizer in regards to the atherosclerotic disease. We will see if there is anything that can or should be done as far as stenting or bypass. The patient was made aware of all of these issues and is in agreement with the plan. The patient's laboratory studies during his hospital stay showed his COVID test to be negative. RSV and influenza were also negative. His troponin was slightly elevated at 0.046. His UA was entirely normal. Lactic acid was normal. His CMP was essentially normal other than slightly low sodium at 133. His CBC appeared to be normal with a white count of 8,000, hemoglobin 13.0, PLT count 226,000. The patient was to be sent home on his usual home medications in addition to the Eliquis which we started, he will be on pantoprazole 40 mg a day. He takes currently Suboxone as well. He will have follow up in our office within the next week. He is to call if he has any other problems in the interim.
[2020-08-05 12:27] VITALS: BP 114/58; PULSE 65; O2SAT 97
== END 2020-08-05 15:07 | disposition home or self-care (01) | DRG 69 ==
LOC: ED 03:50 → MED SURG 09:04 → OBSVTOIN 13:26
PROVIDERS: ADMIT Family Medicine; ATTEND Family Medicine
DX: G45.9 Transient cerebral ischemic attack, unspecified (principal); R53.1 Weakness; W06.XXXA Fall from bed, initial encounter; I70.90 Unspecified atherosclerosis; I65.21 Occlusion and stenosis of right carotid artery; I10 Essential (primary) hypertension
CPT/HCPCS: 0241U; 36000; 36415; 70450; 70496; 70498; 70551; 80053; 80061; 81001; 83605; 83721; 84484; 85025; 93005; 93306; 94760; 94762; 97161; 97530; 99285; 99291; Q3014; A9270-GY

== ENCOUNTER 2021-06-15 08:59 | Day surgery (SDC) | payer MEDICARE, OTHER ==
[~2021-06-15 08:59] MED LIST changes: +BUPIVACAINE 0.5% VIAL IJ ONE; +NEURONTIN 300 MG PO SCH; +OFIRMEV 100 ML IV SCH; -Sensorcaine 0.25% 10 ML ONE; +XYLOCAINE 1% HCL 20 ML MDV ONE; +celeBREX 100 MG PO SCH
[2021-06-15] MEDS ORDERED: Lactated Ringers 1,000 ML IV ONE (09:42)
[2021-06-15] MEDS ORDERED: OFIRMEV 100 ML IV ONE (09:45)
[2021-06-15] MEDS ORDERED: CEFAZOLIN 2 GM-D5W BAG** 2 GM/50 ML ML IV SCH (10:00)
[2021-06-15] MEDS ORDERED: Lactated Ringers 1,000 ML IV SCH (10:00)
[2021-06-15 10:10] LABS: Hematocrit 40.8 % (42-50); Hemoglobin 12.8 gm/dl (12.5-18.0); Mean Cell Volume 91.1 fl (78-100); Mean Corpuscular Hemoglobin 28.6 pg (26-32); Mean Corpuscular Hgb Concent. 31.4 g/dl (32-36); Mean Platelet Volume 10.7 fl (7.5-11.0); Platelet Count 170 K/mm3 (150-450); Red Blood Count 4.48 M/mm3 (4.1-5.6); Red Cell Distribution Width 14.9 % (11.5-14.0); White Blood Count 5.8 K/mm3 (4.0-10.5)
[2021-06-15 10:24] LABS: ALBUMIN 3.7 g/dL (3.5-5.0); ALKALINE PHOSPHATASE 96 U/L (38-126); ANION GAP 11.9 MEQ/L (5-15); BLOOD UREA NITROGEN 16 mg/dL (9-20); CHLORIDE 104 mmol/L (98-107); Calcium 8.8 mg/dL (8.4-10.2); Carbon Dioxide 27 mmol/L (22-30); Creatinine 1 0.79 mg/dL (0.66-1.25); EST GLOMERULAR FILTRATION RATE > 60.0 ML/MIN; Glucose 86 mg/dL (74-106); Potassium 3.8 mmol/L (3.5-5.1); SGOT/AST 34 U/L (17-59); SGPT/ALT 15 U/L (0-50); SODIUM 139 mmol/L (137-145); Total Protein 6.6 g/dL (6.3-8.2)
[2021-06-15] MEDS ORDERED: MAGNESIUM SULFATE IV ONE ×4 (11:30)
[2021-06-15] MEDS ORDERED: KETAMINE HCL IV ONE ×4 (11:30)
[2021-06-15] MEDS ORDERED: [UNRECOGNIZED DRUG - OTHER] IV ONE ×4 (11:30)
[2021-06-15] MEDS ORDERED: DIPRIVAN 200 MG/20 ML IV ONE (14:53)
[2021-06-15] MEDS ORDERED: Versed 2 MG/2 ML Injection ONE (14:53)
[2021-06-15] MEDS ORDERED: Xylocaine-Mpf 2% 5 Ml Vial ONE (14:55)
[2021-06-15] MEDS ORDERED: Zemuron 100 MG/10 ML ONE (14:55)
[2021-06-15] MEDS ORDERED: Decadron 4 MG INJ ONE ×2 (14:55)
[2021-06-15] MEDS ORDERED: PHENYLEPHRINE HCL ONE (15:38)
[2021-06-15] MEDS ORDERED: BRIDION 200MG/2ML IV ONE (16:31)
--- NOTE | 2021-06-15 16:54 | XRAY ---
Indication: Right 1st metatarsal arthrodesis. Intraoperative fluoroscopy provided for 52 seconds. 20 digital spot images submitted for interpretation demonstrates 1st MTP arthrodesis. Last images demonstrates intact 1st MTP anterior fixation plate and multiple screws. Correlate with intraoperative findings/report.
[2021-06-15 17:31] VITALS: O2SAT 97
[2021-06-15 17:47] VITALS: BP 154/68; PULSE 62
--- NOTE | 2021-06-16 08:59 | OP ---
SURGERY DATE/TIME: 06/15/2021 1455 PREOPERATIVE DIAGNOSES: 1) Osteoarthritis first metatarsophalangeal joint right foot. 2) Pain right foot. POSTOPERATIVE DIAGNOSES: 1) Osteoarthritis first metatarsophalangeal joint right foot. 2) Pain right foot. PROCEDURE: Arthrodesis of first metatarsophalangeal joint right foot. SURGEON: Hipolito Gnozales DPM. GLASS CLEANING MACHINE TENDER: None. ANESTHESIA: General plus postoperative local. Neural blocks. See injectable for details. HEMOSTASIS: Ankle tourniquet set 250 mm of Mercury for 56 total time. ESTIMATED BLOOD LOSS: Less than 10 cc. MATERIALS: 4-0 Monocryl, 3-0 Nylon, BIOMET A.L.P.S. first metatarsophalangeal with a 3.4 x 30 mm MAX VPC headless screw. INJECTABLES: 22 cc of a 1:1 mixture of 1% lidocaine plain and 0.5% bupivacaine plain injected in a Morgan block-type fashion to the right foot. INDICATION FOR SURGERY: Michelle is a very pleasant 76 year-old male who was seen by myself in clinic with significant pain with ambulation to the right lower extremity. The patient indicated that he has been dealing with this issue for a number of years and has seen multiple providers for this issue, however, has not sought out recent conservative management due to the fact that he felt nobody could address the pain he was in. At this time the patient stated he would like to proceed with definitive solution for his first metatarsophalangeal joint pain and proceed with that best option as injections have failed in the past as well as shoe gear accommodations were unsuccessful. The patient understands all risks, benefits and complications of surgical intervention including but not limited to delayed bone healing, nonbone healing, delayed skin healing, nonskin healing, possible failure of surgical intervention and need for surgical intervention at a later date. The patient understands all of this and wishes to proceed with surgical intervention at this time. DESCRIPTION OF PROCEDURE: The patient was brought into the OR and placed on the OR table in the supine position. Following this, adequate general anesthesia was administered to the patient and the patient was sedated. A well-padded ankle tourniquet was applied to the patient's right ankle and the right foot prepped and draped in typical sterile fashion. At this time an Esmarch was utilized to exsanguinate the leg and the tourniquet was set to 250 mm of Mercury. At this time a linear incision just medial to the extensor hallucis longus of the right foot was made utilizing a 15 blade being careful not to damage any neurovascular structures as we continued with blunt and sharp dissection down to the level of the first metatarsophalangeal joint. The extensor hallucis longus tendon was identified and retracted off to the lateral aspect of the incision site. At this time, the joint was identified and a J-stroke capsulotomy was performed in the medial and lateral aspects of the medial and lateral collateral ligaments. At this time, the joint was assessed and significant osteoarthritis was identified at the dorsal and plantar aspects of the proximal phalangeal base and the metatarsal head was completely eburnated and free of any cartilaginous surface this was identified as bone on bone osteoarthritis. At this time a rongeur was utilized to resect any significant prominences and a McGlamry was introduced from dorsal to plantar in order to free the soft tissue attachments at the plantar aspect of the first metatarsophalangeal joint this was successful in gaining access to the plantar aspect of the first metaphalangeal joint and the metatarsal head was identified. At this time conical reamers were utilized to remove the remaining subchondral plate this was performed with K-wire guidance under fluoroscopy. Following this, the edges were rongeured of any excessive bone edges. At this time, the site was cleansed with copious amounts of sterile saline. Following this, a 2.0 mm drill bit was utilized to fenestrate the bone surfaces on the base of the proximal phalanx and the first metatarsal head. Following this, temporary K-wire fixation was utilized to access position which was checked under fluoroscopy and deemed to be adequate. At this time a dorsal VPC MAX locking plate was introduced from the dorsal aspect and secured utilizing temporary fixation. Following this, the distal aspect of the plate was fixated. An interfragmentary compression screw was introduced from distal medial to proximal lateral and then the remaining eccentric hole in the plate was placed and compression was gained between these two methods. The remaining holes on the proximal aspect of the plate were filled with locking screws. Final shots were taken with fluoroscopy. At this time, copious amounts of sterile saline were utilized again to flush the surgical site. The capsule of the bone was repaired utilized 4-0 Monocryl, subcutaneous tissue was then repaired utilizing 4-0 Monocryl once again in a simple interrupted-type fashion and then the skin was coapted utilizing a horizontal mattress-type fashion at the dorsal aspect of the first metatarsophalangeal joint. Following this, a dressing consisting of Betadine, Adaptic, 4x4, Kerlix and MARTA was applied to the right lower extremity. The patient was then reversed from anesthesia and returned to the postoperative anesthesia care unit with vital signs stable and vascular status intact. The patient handled the anesthesia and the procedure without complication. Postoperative orders as indicated in the patient's discharge chart.
--- NOTE | 2021-06-16 10:35 | XRAY ---
52 seconds of fluoroscopy was used in surgery for a right 1st metatarsal arthrodesis.
== END 2021-06-15 18:00 | disposition home or self-care (01) ==
LOC: SDC 08:59
PROVIDERS: ATTEND Podiatrist Foot & Ankle Surgery
DX: M19.071 Primary osteoarthritis, right ankle and foot (principal); M79.671 Pain in right foot; Z79.899 Other long term (current) drug therapy
CPT/HCPCS: 28750; 36415; 73630; 76000; 80053; 83735; 85027; 93005; C1713; J0690; J1100; J2250; J2370; J2704; A9270-GY

== ENCOUNTER 2022-05-27 07:16 | Emergency (ER) | payer MEDICARE, OTHER ==
--- NOTE | 2022-05-27 07:22 | ERPHSYRPT ---
- History of Present Illness Time Seen by Provider: 05/27/22 07:22 Source: patient Exam Limitations: no limitations Physician History: This is a 77-year-old white male patient of Dr. Heart who has known enlarged prostate in the past and has taken Flomax in the past for difficulty urinating. He is been off Flomax for quite a while. For the last several weeks the patient has had increasing flank and abdominal/suprapubic pressure. 3 weeks ago, patient underwent a CAT scan of the abdomen pelvis which showed an enlarged prostate. Yesterday was the last day he urinated well. He had a trickle of urine output this morning. He feels a lot of pressure in the suprapubic region. He presents with urinary retention. Patient last saw a urologist in [facility] and prefers, this time, to see a urologist in [facility] instead. Patient has a history of hypertension, hyperlipidemia, gastroesophageal reflux disease and is taking Plavix and has a history of CVA in the past. He denies chest pain he denies shortness of breath. Timing/Duration: today Activites at Onset: none Quality: pressure Onset Location: suprapubic Severity of Pain-Max: mild (To moderate) Severity of Pain-Current: mild (To moderate) Modifying Factors: Improves With: urinating (Difficulty) Sexual intercourse history: non-contributory Allergies/Adverse Reactions: No Known Drug Allergies Allergy (Verified 05/27/22 07:55) Home Medications: Pantoprazole Sodium [Protonix] 40 mg PO DAILY 01/20/17 [History] Buprenorphine HCl/Naloxone HCl [Buprenorphine-Nalox 8-2Mg Film] 1 each SL DAILY 08/02/20 [History] Timolol Maleate/Dorzolam HCl [Cosopt Ophthalmic 10 ml] 1 drop OP BID 08/02/20 [History] Clopidogrel Bisulfate [PLAVIX Tablet] 75 mg PO DAILY 06/14/21 [History] Rosuvastatin Calcium 20 mg PO DAILY 06/15/21 [History] Hx Tetanus, Diphtheria Vaccination/Date Given: No Hx Influenza Vaccination/Date Given: Yes Travel Risk - International Travel Have you traveled outside of the country in past 3 weeks: No - Coronavirus Screening Are you exhibiting any of the following symptoms?: No Close contact with a COVID-19 positive Pt in past 14-21 Days: No - Past Medical History Pertinent Past Medical History: Yes Neurological History: Stroke ENT History: Cataracts, Macular Degeneration Cardiac History: Hypertension Respiratory History: No Pertinent History Endocrine Medical History: No Pertinent History Musculoskeletal History: Arthritis GI Medical History: GERD History: No Pertinent History Psycho-Social History: No Pertinent History Male Reproductive Disorders: No Pertinent History Other Medical History: 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 left carotid endarterectomy - Past Surgical History Past Surgical History: Yes Neuro Surgical History: No Pertinent History Cardiac: Other Respiratory: No Pertinent History Gastrointestinal: Cholecystectomy Genitourinary: No Pertinent History Musculoskeletal: Orthopedic Surgery Male Surgical History: No Pertinent History Other Surgical History: kem cataract removal with lens implant, left shoulder r otator cuff twice ,back L4 and L5 "nerves clipped". cervical fusion x3, carotid artery "cleaned" in 2020 - Social History Smoking Status: Former smoker Exposure to second hand smoke: No Drug Use: none Patient Lives Alone: No - Review of Systems Constitutional: No Symptoms Eyes: No Symptoms Ears, Nose, & Throat: No Symptoms Respiratory: No Symptoms Cardiac: No Symptoms Abdominal/Gastrointestinal: Abdominal Pain (Suprapubic pressure) Genitourinary Symptoms: Urinary Retention Musculoskeletal: No Symptoms Skin: No Symptoms Neurological: No Symptoms Psychological: No Symptoms Endocrine: No Symptoms Hematologic/Lymphatic: No Symptoms Immunological/Allergic: No Symptoms All Other Systems: Reviewed and Negative - Nursing Vital Signs Nursing Vital Signs: Initial Vital Signs Temperature 97.7 F 05/27/22 07:40 Pulse Rate 81 05/27/22 07:40 Blood Pressure 178/82 05/27/22 07:40 O2 Sat by Pulse Oximetry 97 05/27/22 07:40 Pain Scale Pain Intensity 0 - Physical Exam General Appearance: no apparent distress, alert, anxiety Eye Exam: PERRL/EOMI, eyes nml inspection Ears, Nose, Throat Exam: normal ENT inspection, moist mucous membranes Neck Exam: normal inspection, non-tender, supple, full range of motion Respiratory Exam: normal breath sounds, lungs clear, airway intact, No chest tenderness, No respiratory distress Cardiovascular Exam: regular rate/rhythm, normal heart sounds, normal peripheral pulses Gastrointestinal/Abdomen Exam: soft, normal bowel sounds, tenderness (Mild suprapubic to palpation), No guarding, No rebound Rectal Exam: not done Back Exam: normal inspection, normal range of motion, No CVA tenderness, No vertebral tenderness Extremity Exam: normal inspection, normal range of motion, pelvis stable Neurologic Exam: alert, oriented x 3, cooperative, 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-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 as tested, normal mood/affect, nml cerebellar function, nml station & gait, sensation nml Skin Exam: normal color, warm, dry Lymphatic Exam: No adenopathy SpO2 Interpretation: normal O2 Delivery: Room Air - Course Nursing assessment & vital signs reviewed: Yes Ordered Tests: Active Orders 24 hr Category Date Time Status Retana [Catheter-[place] Retana] STAT Care 05/27/22 07:34 Active ABDOMEN AND PELVIS W/0 CONTRAS [CT] Stat Exams 05/27/22 07:38 Completed CULTURE,URINE Stat Lab 05/27/22 07:40 Received UA W/RFX UR CULTURE Stat Lab 05/27/22 07:40 Completed Lab/Rad Data: Laboratory Results 05/27/22 Range/Units 07:40 Urine Color Yellow (Yellow) Urine Appearance Clear (Clear) Urine pH 5.5 (4.6-8.0) Ur Specific Icard 1.015 (1.005-1.030) Urine Protein Negative (Negative) Urine Ketones Negative (Negative) Urine Blood Small A (Negative) Urine Nitrite Negative (Negative) Urine Bilirubin Negative (Negative) Urine Urobilinogen 0.2 (0.2) mg/dL Ur Leukocyte Esterase Negative (Negative) Urine Microscopic RBC 0-2 (0-5) /HPF Urine Microscopic WBC 0-2 (0-5) /HPF Ur Epithelial Cells Few (None Seen) /HPF Urine Bacteria Rare A (None Seen) /HPF Urine Culture Reflexed NO (NO) Urine Glucose Negative (Negative) mg/dL - Progress Progress: improved, re-examined Progress Note: 05/27/22 08:51 After placement of the Retana catheter, the patient states that his symptoms significantly improved. CAT scan of the abdomen pelvis without contrast shows no acute intra-abdominal or intrapelvic abnormality. There is mild fecal stasis present. Medical decision making: This patient has had some abdominal/suprapubic pressure. There is no evidence of any acute intra-abdominal or intra pelvic abnormality. He has known enlarged prostate. We will make arrangements for him to see a urologist. We are awaiting his urinalysis. If there is infection we will start him on antibiotic therapy. We will allow the urologist to determine what medications, if any, the patient needs to be placed on. We will send the patient home with a Retana catheter in place. Counseled pt/family regarding: lab results, diagnosis, need for follow-up, rad results - Departure Departure Disposition: Home Clinical Impression: Urinary retention Condition: Stable Critical Care Time: No Referrals: KACI HEART [Primary Care Provider] - Follow up/PCP as directed Additional Instructions: Drink plenty of fluids. Take your medication as prescribed. Follow-up with your urologist as an outpatient on your scheduled date and time.
[2022-05-27 08:05] LABS: Appearance Clear (Clear); Bilirubin Negative (Negative); Blood Small (Negative); Glucose Negative (Negative); Ketones Negative (Negative); Leukocyte Esterase Negative (Negative); Nitrite Negative (Negative); Ph 5.5 (4.6-8.0); Protein,Urine Dip Negative (Negative); Specific Gravity 1.015 (1.005-1.030); Urobilinogen 0.2 mg/dL (0.2)
[2022-05-27 08:46] LABS: ADD URINE CULTURE? NO (NO); Bacteria Rare /HPF (None Seen); Epithelial Cells Few /HPF (None Seen); RBC 0-2 /HPF (0-5); WBC 0-2 /HPF (0-5)
--- NOTE | 2022-05-27 08:48 | XRAY ---
Indication: Suprapubic pain. Difficulty urinating. Multiple contiguous axial images obtained through the abdomen and pelvis without contrast. Comparison: October 01, 2019 Lung bases now demonstrates tiny left lower lobe calcific granulomas. No infiltrate or effusion. Heart not enlarged again with tiny pericardial effusion/thickening less than before. Noncontrasted stomach and bowel loops nonobstructed with normal appendix. Again mild diffuse scattered colonic fecal debris throughout, less than before. Urinary bladder empty with new Retana balloon catheter in situ. Again incidental hepatic/splenic calcified granulomas, left renal cysts, and small left adrenal adenoma. Again previous cholecystectomy. No free fluid/air. Remaining liver, pancreas, spleen, adrenal glands, kidneys, and ureters are unremarkable for noncontrast exam. There remains a moderate aortoiliac calcifications without AAA. Osseous structures intact again with osteopenia and moderate degenerative changes throughout the spine and both hips. Again incidental bilateral vasectomy clips. No ventral or inguinal hernias. Impression: 1. New Retana balloon catheter in a empty urinary bladder. 2. Again tiny pericardial effusion/thickening, mild diffuse fecal stasis, left renal cysts, arteriosclerotic disease, chronic bony findings, and old granulomatous disease. 3. Remaining CT abdomen/pelvis without contrast exam is negative.
[2022-05-27 09:16] VITALS: BP 177/89; PULSE 72; O2SAT 98
== END 2022-05-27 09:32 | disposition home or self-care (01) ==
LOC: ED 07:16
DX: R33.9 Retention of urine, unspecified (principal); R10.2 Pelvic and perineal pain; I10 Essential (primary) hypertension; E78.5 Hyperlipidemia, unspecified; Z79.02 Long term (current) use of antithrombotics/antiplatelets; Z79.899 Other long term (current) drug therapy
CPT/HCPCS: 51702; 74176; 81001; 87086; 99283

== ENCOUNTER 2022-06-01 11:28 | Emergency (ER) | payer MEDICARE, OTHER ==
--- NOTE | 2022-06-01 12:05 | ERPHSYRPT ---
- History of Present Illness Time Seen by Provider: 06/01/22 12:05 Source: patient, family Exam Limitations: no limitations Physician History: This is a 77-year-old gentleman who was seen here last week and was having complaints of urinary retention. We placed a Retana catheter in him and he chose to wear the bag rather than the leg bag where the caudal pressure would not be as great. He is back today because he would like to switch to the other type of leg bag where there is not so much tension on the tubing and therefore his penis. There is discomfort there. He also would like me to fill the prescription for Flomax which he has had in the past when he had urinary issues. I did explain to him that the Flomax might be beneficial if he did not have the Retana catheter in place. He might not notice a difference of taking the Flomax with the Retana catheter in place. He still prefers to have the prescription for Flomax. His urology appointment is not until June 13, 2022. He has no other new, acute complaints Timing/Duration: other (Symptoms ever since he went home with a Retana catheter) Activites at Onset: none Quality: other (Pulling sensation) Onset Location: urethral Severity of Pain-Max: mild Severity of Pain-Current: mild Modifying Factors: Improves With: other (Chronically has the sensation that he needs to use the restroom. We explained to him that this is a sensation that occurs with a Retana catheter in place.) Associated Symptoms: denies symptoms Prior abdominal problems: none Allergies/Adverse Reactions: No Known Drug Allergies Allergy (Verified 06/01/22 12:23) Home Medications: Pantoprazole Sodium [Protonix] 40 mg PO DAILY 01/20/17 [History] Buprenorphine HCl/Naloxone HCl [Buprenorphine-Nalox 8-2Mg Film] 1 each SL DAILY 08/02/20 [History] Timolol Maleate/Dorzolam HCl [Cosopt Ophthalmic 10 ml] 1 drop OP BID 08/02/20 [History] Clopidogrel Bisulfate [PLAVIX Tablet] 75 mg PO DAILY 06/14/21 [History] Rosuvastatin Calcium 20 mg PO DAILY 06/15/21 [History] Hx Tetanus, Diphtheria Vaccination/Date Given: No Hx Influenza Vaccination/Date Given: Yes Travel Risk - International Travel Have you traveled outside of the country in past 3 weeks: No - Coronavirus Screening Are you exhibiting any of the following symptoms?: No Close contact with a COVID-19 positive Pt in past 14-21 Days: No - Vaccine Status Have you recieved a Covid-19 vaccination: Yes Before School: Moderna - Vaccination Dates Date of 2cond Vaccination (if applicable): 2020 - Past Medical History Pertinent Past Medical History: Yes Neurological History: Stroke ENT History: Cataracts, Macular Degeneration Cardiac History: Hypertension Respiratory History: No Pertinent History Endocrine Medical History: No Pertinent History Musculoskeletal History: Arthritis GI Medical History: GERD History: No Pertinent History Psycho-Social History: No Pertinent History Male Reproductive Disorders: No Pertinent History Other Medical History: 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 left carotid endarterectomy - Past Surgical History Past Surgical History: Yes Neuro Surgical History: No Pertinent History Cardiac: Other Respiratory: No Pertinent History Gastrointestinal: Cholecystectomy Genitourinary: No Pertinent History Musculoskeletal: Orthopedic Surgery Male Surgical History: No Pertinent History Other Surgical History: kem cataract removal with lens implant, left shoulder rotator cuff twice ,back L4 and L5 "nerves clipped". cervical fusion x3, carotid artery "cleaned" in 2020 - Social History Smoking Status: Former smoker Exposure to second hand smoke: No Drug Use: none Patient Lives Alone: No - Review of Systems Constitutional: No Symptoms Eyes: No Symptoms Ears, Nose, & Throat: No Symptoms Respiratory: No Symptoms Cardiac: No Symptoms Abdominal/Gastrointestinal: No Symptoms Genitourinary Symptoms: Other (Pulling sensation from the catheter in his penis) Musculoskeletal: No Symptoms Skin: No Symptoms Neurological: No Symptoms Psychological: No Symptoms Endocrine: No Symptoms Hematologic/Lymphatic: No Symptoms Immunological/Allergic: No Symptoms All Other Systems: Reviewed and Negative - Nursing Vital Signs Nursing Vital Signs: Initial Vital Signs Temperature 98.4 F 06/01/22 12:16 Pulse Rate 82 06/01/22 12:16 Blood Pressure 153/71 06/01/22 12:16 O2 Sat by Pulse Oximetry 95 06/01/22 12:16 Pain Scale Pain Intensity 0 - Physical Exam General Appearance: no apparent distress, alert, anxiety Eye Exam: PERRL/EOMI, eyes nml inspection Ears, Nose, Throat Exam: normal ENT inspection, TM abnormal (L) Neck Exam: normal inspection, non-tender, supple, full range of motion Respiratory Exam: airway intact, No chest tenderness, No respiratory distress Gastrointestinal/Abdomen Exam: No tenderness Rectal Exam: not done Back Exam: normal inspection, normal range of motion, No CVA tenderness, No vertebral tenderness Extremity Exam: normal inspection Neurologic Exam: alert, oriented x 3, cooperative, 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 Take your medication as prescribed. Keep your urology appointment on 06/13/2022. Prescriptions: Tamsulosin HCl 0.4 mg [Flomax 0.4 MG] 0.4 mg PO DAILY #14 cap
[2022-06-01 12:23] VITALS: BP 153/71; PULSE 82; O2SAT 95
== END 2022-06-01 12:30 | disposition home or self-care (01) ==
LOC: ED 11:28
DX: Z46.6 Encounter for fitting and adjustment of urinary device (principal); I10 Essential (primary) hypertension; Z79.891 Long term (current) use of opiate analgesic; Z79.02 Long term (current) use of antithrombotics/antiplatelets; Z79.899 Other long term (current) drug therapy
CPT/HCPCS: 99281